=== PATIENT | male | born 1950 | race Caucasian/White ===

== ENCOUNTER 2019-05-06 19:30 | Inpatient (IN) ==
[2019-05-06] MEDS ORDERED: ELIQUIS PO ONE (19:52)
[2019-05-06] MEDS ORDERED: CARDIZEM IV ONE ×2 (19:52→20:54)
[2019-05-06] MEDS ORDERED: NITROGLYCERIN TOP ONE (19:54)
[2019-05-06 20:22] LABS: INR 1.07; PROTIME 14.5 Seconds (11.0-16.0)
[2019-05-06 20:23] LABS: PTT 34.5 Seconds (22.3-41.8)
[2019-05-06 20:27] LABS: BASO# 0.06 X1000 (0.0-0.2); BASO% 0.6 % (0.0-0.8); EOS# 0.22 X1000 (0.0-0.7); EOS% 2.2 % (0.0-10.0); HEMATOCRIT 42.6 % (42.0-52.0); HEMOGLOBIN 14.7 g/dL (14.0-18.0); IMM GRAN# 0.07 X1000 (0.0-0.04); IMM GRAN% 0.7 % (0.0-0.5); LYMPH# 1.66 X1000 (1.2-3.4); LYMPH% 16.4 % (20.5-51.1); MCH 30.6 PG (27-31); MCHC 34.5 g/dL (33-37); MCV 88.8 FL (81-99); MONO# 0.85 X1000 (0.11-0.59); MONO% 8.4 % (1.7-9.3); MPV 12.9 FL (7.4-10.4); NEUT# 7.29 X1000 (1.4-6.5); NEUT% 71.7 % (42.2-75.2); PLT 205 X1000 (130-400); WBC 10.15 X1000 (4.8-10.8)
--- NOTE | 2019-05-06 20:37 | Diag Imaging Result Doc PS360 ---
EXAM: CHEST-PORTABLE 05/06/2019 HISTORY: CP TECHNIQUE: Erect AP portable at 2022 COMMENT: There is no evidence of acute cardiac or pulmonary disease. Compared to 02/08/2018 there has been no significant change the appearance of the chest. IMPRESSION: No evidence of acute disease. Electronically signed by Shashi Heredia 05/06/2019 8:34 PM
[2019-05-06] MEDS ORDERED: HUMULIN R IV ONE (20:40)
[2019-05-06 20:41] LABS: ALBUMIN 4.5 g/dL (3.5-5.0); CALCIUM 9.3 mg/dL (8.8-10.2); CREATININE 1.7 mg/dL (0.7-1.2); POTASSIUM 4.2 mmol/L (3.5-5.1); TOTAL BILIRUBIN 0.5 mg/dL (0.20-1.00); TOTAL PROTEIN 7.2 g/dL (6.3-8.3)
[2019-05-06 21:01] LABS: BE 3.1 mmoll (-3.0-3.0); BLOOD TYPE ARTERIAL; HCO3-(ACT) 27.3 mmoll (20.0-26.0); METHB 0.7 % (0.0-1.5); O2(CT) 21.3 mL/dL (15.0-23.0); O2HB 95.1 % (95.0-99.0); PCO2(98.6) 33 mmHg (35-45); PO2(98.6) 103 mmHg (60-100); SAMPLE BLOOD; SAO2 96.9 % (95.0-100.0); THB 15.9 g/dL (11.5-17.4)
[2019-05-06 21:03] LABS: ALLEN TEST YES; MODALITY ROOM AIR
[2019-05-06] MEDS ORDERED: HUMULIN R (PARKWAY) ONE (21:09)
[2019-05-06 21:20] LABS: URINE SOURCE CLEAN CATCH
[2019-05-06 21:25] LABS: BILIRUBIN URINE NEGATIVE (NEGATIVE); BLOOD URINE NEGATIVE (NEGATIVE); COLOR YELLOW; GLUCOSE URINE >1000 mg/dL (NEGATIVE); KETONE URINE NEGATIVE (NEGATIVE); LEUKOCYTES URINE TRACE (NEGATIVE); NITRITE URINE NEGATIVE (NEGATIVE); PH URINE 5.5; PROTEIN URINE TRACE mg/dL (NEGATIVE); SP GRAVITY URINE 1.021; TURBIDITY URINE CLEAR (CLEAR); UROBILINOGEN URINE NORMAL (NORMAL)
[2019-05-06 21:27] LABS: UR EPITHELIAL CELLS <10 /HPF (<10); URINE BACTERIA NEGATIVE /HPF; URINE RBC <10 /HPF (<10); URINE WBC <10 /HPF (<10)
[2019-05-06] MEDS: CARDIZEM 100 MG/NS 100 MG/100 ML IVPB IV SCH ×2 (21:39→22:07)
[2019-05-06 21:41] LABS: UR AMPHETAMINES QUAL NONE DETECTED (NONE DETECT); UR BARBITUATES QUAL NONE DETECTED (NONE DETECT); UR BENZODIAZEPIN QUAL NONE DETECTED (NONE DETECT); UR CANNABINOIDS QUAL NONE DETECTED (NONE DETECT); UR COCAINE QUAL NONE DETECTED (NONE DETECT); UR METHADONE QUAL NONE DETECTED (NONE DETECT); UR METHAMPHETAMINE QUAL NONE DETECTED (NONE DETECT); UR OPIATES QUAL NONE DETECTED (NONE DETECT); UR OXYCODONE QUAL NONE DETECTED (NONE DETECT); UR PCP QUAL NONE DETECTED (NONE DETECT); UR PROPOXYPHENE QUAL NONE DETECTED (NONE DETECT); UR TCA QUAL NONE DETECTED (NONE DETECT)
[2019-05-06] MEDS ORDERED: CORDARONE IV ONE ×2 (22:04→22:37)
[2019-05-06 22:06] LABS: MAGNESIUM 1.3 mg/dL (1.5-2.7); PHOSPHORUS 2.7 mg/dL (2.7-4.5)
[2019-05-06] MEDS ORDERED: LANOXIN IV ONE (22:42)
--- NOTE | 2019-05-06 23:22 | PROVIDER DOCUMENTATION ---
This chart was entered by Anisa Ambrose Scribe, acting as scribe for Dhiraj Costa MD. HPI-Chest Pain - General Chief Complaint: Chest Pain Stated Complaint: CHEST PAIN Time Seen by Provider: 05/06/19 19:40 Source: patient Allergies/Adverse Reactions: Patient Allergies Allergy/AdvReac Type Severity Reaction Status Date / Time albuterol AdvReac Severe made heart Verified 05/06/19 19:39 race real fast Iodinated Contrast Media AdvReac Mild ITCHING Verified 05/06/19 19:39 isosorbide mononitrate * AdvReac Mild ITCHING Verified 05/06/19 19:39 [From Imdur] Home Medications: Home Medication List Medication Instructions Recorded Confirmed Last Taken Type Omeprazole [Prilosec] 40 mg PO BID 11/01/12 05/25/17 06/01/17 06:00 History Furosemide [Lasix] 20 mg PO DAILY 01/29/13 05/25/17 06/01/17 06:00 History Albuterol Sulfate [Ventolin Hfa] 1 puff IH 4X05/25/17 06/01/17 06/01/17 06:00 History Budesonide/Formoterol Fumarate 1 puff IH BID 05/25/17 05/25/17 06/01/17 06:00 History [Symbicort 160-4.5 Mcg Inhaler] Cholecalciferol (Vit D3) [Vitamin 5,000 unit PO DAILY 05/25/17 05/25/17 06/01/17 06:00 History D] Cyanocobalamin (Vitamin B-12) 1,000 mcg IJ DIRECTED 05/25/17 05/25/17 06/01/17 06:00 History [Cyanocobalamin Injection] Diltiazem HCl [Cartia Xt] 120 mg PO DAILY 05/25/17 05/25/17 06/01/17 06:00 History Hydralazine [Apresoline] 25 mg PO BID 05/25/17 05/25/17 06/01/17 06:00 History Hydrochlorothiazide 25 mg PO DAILY 05/25/17 05/25/17 06/01/17 06:00 History LISINOpril [Prinivil] 10 mg PO BID 05/25/17 05/25/17 05/31/17 09:30 History Metformin [Glucophage] 850 mg PO BID CC 05/25/17 05/25/17 05/31/17 09:30 History Zolpidem [Ambien] 5 mg PO QHS 05/25/17 05/25/17 06/01/17 06:00 History Methocarbamol [Robaxin-750] 750 mg PO Q6H #20 tab 02/08/18 Unknown Rx - History of Present Illness-CP Nature of Presenting Problem: pt is a 69 yowm 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 pt reports pain is improving among ed arrival. 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 pt has hx of afib, takes 5mg elaquis in am and pm, has not had pm dose. residential manager is dr. chaves, pcp dr. garcia. pt sts had ablasion and afib has been under control. pt has not had cp like this. no sob or diaphoresis. Location: reports: central Chest Pain Radiation: reports: arms (left), neck Severity in ED: mild Onset/Duration: 1 hour ago Timing: improving Context/Activities at Onset: reports: none Modifying Factors: improves with: nothing Associated Symptoms: denies: diaphoresis, shortness of breath Nitro Today/Relief: provided at home, mild relief Similar Symptoms Previously?: No Review of Systems - Adult - REVIEW OF SYSTEMS - ADULT Constitutional: reports: no symptoms reported. denies: fever, fatique, night sweats Eyes: reports: no symptoms reported Ears, Nose, Mouth & Throat: reports: no symptoms reported Cardiovascular: reports: see HPI, chest pain. denies: edema, heart murmur, poor circulation, syncope Respiratory: reports: no symptoms reported. denies: shortness of breath Gastrointestinal: reports: no symptoms reported Genitourinary: reports: no symptoms reported Musculoskeletal: reports: no symptoms reported Integumentary: reports: no symptoms reported Neurological: reports: no symptoms reported Psychiatric: reports: no symptoms reported Endocrine: reports: no symptoms reported. denies: excessive sweating Hematologic/Lymphatic: reports: no symptoms reported Allergic/Immunologic: reports: no symptoms reported All Other Systems: Reviewed and Negative Past History - Adult - PAST MEDICAL HISTORY-ADULT Review of Records: reports: Nursing Assessment Review, Medications Reviewed, Social history reviewed & non-contributory. Major Childhood Illnesses: reports: denies history Cardiovascular: reports: A-Fib, HTN Respiratory: reports: sleep apnea Gastrointestinal: reports: denies history Obstetrical/Gynecological: reports: denies history Genitourinary: reports: other Musculoskeletal: reports: denies history Neurological: reports: denies history Endocrine/Immune: reports: Diabetes Other Conditions: reports: denies history - PRIOR SURGERIES/PROCEDURES Surgical/Procedure History: reports: reviewed, not pertinent, other - IMMUNIZATION STATUS Childhood Immunizations: See Nurse Assessment Flu Vaccine: See Nurse Assessment - FAMILY HISTORY Family History: reviewed, not pertinent - SOCIAL HISTORY Smoking: non-smoker Substance Use: none/never Physical Exam-General - PHYSICAL EXAM-ADULT Initial Vital Signs Reviewed: Yes - CONSTITUTIONAL General Appearance: appears well, alert, no apparent distress, obese. negative: slow to respond, obtunded, combative - EYES Eyes: PERRL/EOMI - HEAD, EARS, NOSE, MOUTH & THROAT HENMT: normocephalic/atraumatic, moist mucous membranes, normal ENT inspection - NECK Neck: non-tender, full range of motion, supple, normal inspection - RESPIRATORY Respiratory: chest non-tender, lungs clear, normal breath sounds - CARDIOVASCULAR Cardiovascular: normal peripheral pulses, no edema, no gallop, no JVD, no murmur , tachycardia. negative: regular rate, rhythm, extra beats, friction rub, irregularly irregular - GASTROINTESTINAL (ABDOMEN) Abdominal Exam: normal bowel sounds, non tender, soft - MUSCULOSKELETAL Back Exam: normal inspection Extremity: normal range of motion, non-tender, normal inspection - SKIN Integumentary: normal color, normal turgor, warm/dry - NEUROLOGIC Neurologic: grossly normal, no motor/sensory deficits - PSYCHIATRIC Psych/Mental Status: normal mood/affect, normal thought content, normal thought process, oriented x 3 - HEART Score HEART Score: History: Highly Suspicious HEART Score: ECG: Non-Specific Repolarization Disturbance/LBBB/PM HEART Score: Age: > or = 65 Years HEART Score: Risk Factors for Atherosclerotic Disease: > or = 3 Risk Factors or History of Atherosclerotic Disease HEART Score: Troponin: 1-3x Normal Limit Total HEART Score:: 8 Progress - PLAN OF CARE/RESULTS Progress/Plan/Lab Results: Vital Signs - 8 hr 05/06/19 19:33 Temperature 97.7 F Pulse Rate 137 H Respiratory Rate 20 Blood Pressure 152/84 O2 Sat by Pulse Oximetry 94 L Laboratory Results - last 24 hr 05/06/19 05/06/19 05/06/19 19:55 19:55 19:55 WBC 10.15 RBC 4.80 Hgb 14.7 Hct 42.6 MCV 88.8 MCH 30.6 MCHC 34.5 RDW Std Deviation 13.0 Plt Count 205 MPV 12.9 H Immature Gran % (Auto) 0.7 H Neut % (Auto) 71.7 Lymph % (Auto) 16.4 L [place] % (Auto) 8.4 Eos % (Auto) 2.2 Baso % (Auto) 0.6 Immature Gran # (Auto) 0.07 H Neut # (Auto) 7.29 H Lymph # (Auto) 1.66 [place] # (Auto) 0.85 H Eos # (Auto) 0.22 Baso # (Auto) 0.06 PT INR PTT (Actin FS) Specimen Type Sample Site pH pCO2 pO2 HCO3 Base Excess Oxyhemoglobin ABG O2 Sat (Calculated) ABG O2 Saturation ABG Carboxyhemoglobin ABG Methemoglobin Valentin Test A-a O2 Difference Total Hemoglobin Lactate Blood Gas Modality FiO2 % Sodium 138 Potassium 4.2 Chloride 98 Carbon Dioxide 22 L Anion Gap 19 BUN 23 H Creatinine 1.7 H Estimated GFR/1.73 m2 40 BUN/Creatinine Ratio 14 Glucose 451 H* POC Glucose Calculated Osmolality 299 Calcium 9.3 Phosphorus Magnesium Total Bilirubin 0.50 AST 33 ALT 53 H Alkaline Phosphatase 49 Creatine Kinase Troponin T High Sens [id number]-Holjxgxctkw Pept 197 Total Protein 7.2 Albumin 4.5 Globulin 3.0 Albumin/Globulin Ratio 2.0 TSH Urine Source Urine Color Urine Turbidity Urine pH Ur Specific [place] Urine Protein Ur Glucose (Stick) Ur Ketones (Stick) Urine Blood Urine Nitrite Urine Bilirubin Urobilinogen Dipstick Urine Leukocytes Urine WBC (Auto) Urine RBC (Auto) U Epithel Cells (Auto) Urine Bacteria (Auto) Urine Opiates Screen Ur Oxycodone Screen Urine Methadone Screen U Propoxyphene Qual Ur Barbituates Screen Ur Tricyclics Screen Ur Phencyclidine Scrn Ur Amphetamines Screen U Methamphetamines Scrn U Benzodiazepines Scrn Urine Cocaine Screen U Cannabinoids Screen Acetone Level 05/06/19 05/06/19 05/06/19 19:55 19:55 19:55 WBC RBC Hgb Hct MCV MCH MCHC RDW Std Deviation Plt Count MPV Immature Gran % (Auto) Neut % (Auto) Lymph % (Auto) [place] % (Auto) Eos % (Auto) Baso % (Auto) Immature Gran # (Auto) Neut # (Auto) Lymph # (Auto) [place] # (Auto) Eos # (Auto) Baso # (Auto) PT 14.5 INR 1.07 PTT (Actin FS) 34.5 Specimen Type Sample Site pH pCO2 pO2 HCO3 Base Excess Oxyhemoglobin ABG O2 Sat (Calculated) ABG O2 Saturation ABG Carboxyhemoglobin ABG Methemoglobin Valentin Test A-a O2 Difference Total Hemoglobin Lactate Blood Gas Modality FiO2 % Sodium Potassium Chloride Carbon Dioxide Anion Gap BUN Creatinine Estimated GFR/1.73 m2 BUN/Creatinine Ratio Glucose POC Glucose Calculated Osmolality Calcium Phosphorus Magnesium Total Bilirubin AST ALT Alkaline Phosphatase Creatine Kinase 69 Troponin T High Sens 15 Klg-P-Wneklgaelrh Pept Total Protein Albumin Globulin Albumin/Globulin Ratio TSH Urine Source Urine Color Urine Turbidity Urine pH Ur Specific [place] Urine Protein Ur Glucose (Stick) Ur Ketones (Stick) Urine Blood Urine Nitrite Urine Bilirubin Urobilinogen Dipstick Urine Leukocytes Urine WBC (Auto) Urine RBC (Auto) U Epithel Cells (Auto) Urine Bacteria (Auto) Urine Opiates Screen Ur Oxycodone Screen Urine Methadone Screen U Propoxyphene Qual Ur Barbituates Screen Ur Tricyclics Screen Ur Phencyclidine Scrn Ur Amphetamines Screen U Methamphetamines Scrn U Benzodiazepines Scrn Urine Cocaine Screen U Cannabinoids Screen Acetone Level 05/06/19 05/06/19 05/06/19 19:55 19:55 19:55 WBC RBC Hgb Hct MCV MCH MCHC RDW Std Deviation Plt Count MPV Immature Gran % (Auto) Neut % (Auto) Lymph % (Auto) [place] % (Auto) Eos % (Auto) Baso % (Auto) Immature Gran # (Auto) Neut # (Auto) Lymph # (Auto) [place] # (Auto) Eos # (Auto) Baso # (Auto) PT INR PTT (Actin FS) Specimen Type Sample Site pH pCO2 pO2 HCO3 Base Excess Oxyhemoglobin ABG O2 Sat (Calculated) ABG O2 Saturation ABG Carboxyhemoglobin ABG Methemoglobin Valentin Test A-a O2 Difference Total Hemoglobin Lactate Blood Gas Modality FiO2 % Sodium Potassium Chloride Carbon Dioxide Anion Gap BUN Creatinine Estimated GFR/1.73 m2 BUN/Creatinine Ratio Glucose POC Glucose Calculated Osmolality Calcium Phosphorus 2.7 Magnesium 1.3 L Total Bilirubin AST ALT Alkaline Phosphatase Creatine Kinase Troponin T High Sens Hdu-F-Vtptuxsahtp Pept Total Protein Albumin Globulin Albumin/Globulin Ratio TSH 2.40 Urine Source Urine Color Urine Turbidity Urine pH Ur Specific [place] Urine Protein Ur Glucose (Stick) Ur Ketones (Stick) Urine Blood Urine Nitrite Urine Bilirubin Urobilinogen Dipstick Urine Leukocytes Urine WBC (Auto) Urine RBC (Auto) U Epithel Cells (Auto) Urine Bacteria (Auto) Urine Opiates Screen Ur Oxycodone Screen Urine Methadone Screen U Propoxyphene Qual Ur Barbituates Screen Ur Tricyclics Screen Ur Phencyclidine Scrn Ur Amphetamines Screen U Methamphetamines Scrn U Benzodiazepines Scrn Urine Cocaine Screen U Cannabinoids Screen Acetone Level NEGATIVE 05/06/19 05/06/19 05/06/19 20:47 21:11 21:11 WBC RBC Hgb Hct MCV MCH MCHC RDW Std Deviation Plt Count MPV Immature Gran % (Auto) Neut % (Auto) Lymph % (Auto) [place] % (Auto) Eos % (Auto) Baso % (Auto) Immature Gran # (Auto) Neut # (Auto) Lymph # (Auto) [place] # (Auto) Eos # (Auto) Baso # (Auto) PT INR PTT (Actin FS) Specimen Type ARTERIAL Sample Site L RADIAL pH 7.50 H pCO2 33 L pO2 103 H HCO3 27.3 H Base Excess 3.1 H Oxyhemoglobin 95.1 ABG O2 Sat (Calculated) 21.3 ABG O2 Saturation 96.9 ABG Carboxyhemoglobin 1.20 ABG Methemoglobin 0.7 Valentin Test YES A-a O2 Difference 5.0 Total Hemoglobin 15.9 Lactate 3.30 H Blood Gas Modality ROOM AIR FiO2 % 21.0 Sodium Potassium Chloride Carbon Dioxide Anion Gap BUN Creatinine Estimated GFR/1.73 m2 BUN/Creatinine Ratio Glucose POC Glucose Calculated Osmolality Calcium Phosphorus Magnesium Total Bilirubin AST ALT Alkaline Phosphatase Creatine Kinase Troponin T High Sens Ihm-R-Jtfeyujcvgt Pept Total Protein Albumin Globulin Albumin/Globulin Ratio TSH Urine Source CLEAN CATCH Urine Color YELLOW Urine Turbidity CLEAR Urine pH 5.5 Ur Specific [place] 1.021 Urine Protein TRACE A Ur Glucose (Stick) >1000 A Ur Ketones (Stick) NEGATIVE Urine Blood NEGATIVE Urine Nitrite NEGATIVE Urine Bilirubin NEGATIVE Urobilinogen Dipstick NORMAL Urine Leukocytes TRACE A Urine WBC (Auto) <10 Urine RBC (Auto) <10 U Epithel Cells (Auto) <10 Urine Bacteria (Auto) NEGATIVE Urine Opiates Screen NONE DETECTED Ur Oxycodone Screen NONE DETECTED Urine Methadone Screen NONE DETECTED U Propoxyphene Qual NONE DETECTED Ur Barbituates Screen NONE DETECTED Ur Tricyclics Screen NONE DETECTED Ur Phencyclidine Scrn NONE DETECTED Ur Amphetamines Screen NONE DETECTED U Methamphetamines Scrn NONE DETECTED U Benzodiazepines Scrn NONE DETECTED Urine Cocaine Screen NONE DETECTED U Cannabinoids Screen NONE DETECTED Acetone Level 05/06/19 05/06/19 22:16 22:17 WBC RBC Hgb Hct MCV MCH MCHC RDW Std Deviation Plt Count MPV Immature Gran % (Auto) Neut % (Auto) Lymph % (Auto) [place] % (Auto) Eos % (Auto) Baso % (Auto) Immature Gran # (Auto) Neut # (Auto) Lymph # (Auto) [place] # (Auto) Eos # (Auto) Baso # (Auto) PT INR PTT (Actin FS) Specimen Type Sample Site pH pCO2 pO2 HCO3 Base Excess Oxyhemoglobin ABG O2 Sat (Calculated) ABG O2 Saturation ABG Carboxyhemoglobin ABG Methemoglobin Valentin Test A-a O2 Difference Total Hemoglobin Lactate Blood Gas Modality FiO2 % Sodium Potassium Chloride Carbon Dioxide Anion Gap BUN Creatinine Estimated GFR/1.73 m2 BUN/Creatinine Ratio Glucose POC Glucose 283 H Calculated Osmolality Calcium Phosphorus Magnesium Total Bilirubin AST ALT Alkaline Phosphatase Creatine Kinase Troponin T High Sens 20 H Vsj-[id number]-Ipqgvlutrzg Pept Total Protein Albumin Globulin Albumin/Globulin Ratio TSH Urine Source Urine Color Urine Turbidity Urine pH Ur Specific [place] Urine Protein Ur Glucose (Stick) Ur Ketones (Stick) Urine Blood Urine Nitrite Urine Bilirubin Urobilinogen Dipstick Urine Leukocytes Urine WBC (Auto) Urine RBC (Auto) U Epithel Cells (Auto) Urine Bacteria (Auto) Urine Opiates Screen Ur Oxycodone Screen Urine Methadone Screen U Propoxyphene Qual Ur Barbituates Screen Ur Tricyclics Screen Ur Phencyclidine Scrn Ur Amphetamines Screen U Methamphetamines Scrn U Benzodiazepines Scrn Urine Cocaine Screen U Cannabinoids Screen Acetone Level Orders Category Date Time Status Admit - [facility] Routine AdmDCTranf 05/06/19 23:16 Active Cardiac Monitoring DIRECTED Care 05/06/19 19:54 Active FSBS/Accucheck Result Q1H Care 05/06/19 20:42 Active Oxygen Therapy- ED Nursing DIRECTED Care 05/06/19 19:54 Active Saline Loc NOW Care 05/06/19 19:54 Active CHEST-PORTABLE [RAD] Stat Exams 05/06/19 19:54 Completed ABG [RESP] Routine Lab 05/06/19 20:47 Completed ACETONE SERUM [CHEM] Stat Lab 05/06/19 19:55 Completed CBC WITH ELECTRONIC DIFF [HEME] Stat Lab 05/06/19 19:55 Completed CK PROFILE [SP CHEM] Stat Lab 05/06/19 19:55 Completed COMPREHENSIVE METABOLIC PANEL [CHEM] Stat Lab 05/06/19 19:55 Completed MAGNESIUM [CHEM] Stat Lab 05/06/19 19:55 Completed PHOSPHORUS [CHEM] Stat Lab 05/06/19 19:55 Completed PRO B-NATRIURETIC PEPTIDE Stat Lab 05/06/19 19:55 Completed PROTIME WITH INR [COAG] Stat Lab 05/06/19 19:55 Completed PTT [COAG] Stat Lab 05/06/19 19:55 Completed TROPONIN T HIGH SENSITIVITY Stat Lab 05/06/19 19:55 Completed TROPONIN T HIGH SENSITIVITY Stat Lab 05/06/19 22:17 Completed TSH Stat Lab 05/06/19 19:55 Completed UA [URINALYSIS W/POSS RFLX CULT] [URINALYSIS] Stat Lab 05/06/19 21:11 Completed URINE CULTURE [RM] Routine Lab 05/06/19 21:28 Ordered URINE DRUG SCREEN PL Stat Lab 05/06/19 21:11 Completed Amiodarone [Cordarone] Med 05/06/19 22:04 Discontinued 150 mg IV NOW ONE Amiodarone [Cordarone] Med 05/06/19 22:37 Discontinued 150 mg IV NOW ONE Apixaban [Eliquis] Med 05/06/19 19:52 Discontinued 5 mg PO NOW ONE Digoxin [Lanoxin] Med 05/06/19 22:42 Discontinued 250 microgm IV NOW ONE Diltiazem 100 mg/Ns [Cardizem 100 mg/Ns] Med 05/06/19 21:00 Active 100 mg in 100 ml IV As Directed mls/hr Diltiazem [Cardizem] Med 05/06/19 20:54 Discontinued 20 mg IV NOW ONE Diltiazem [Cardizem] Med 05/06/19 19:52 Discontinued 25 mg IV NOW ONE Insulin Human Regular ([place] [Humulin R ([place])] Med 05/06/19 21:09 Discontinued 10 units .ROUTE .STK-MED ONE Insulin Human Regular [Humulin R] Med 05/06/19 20:40 Discontinued 10 unit IV NOW ONE Nitroglycerin Med 05/06/19 19:54 Discontinued 0.5 inch TOP NOW ONE CP/SOB/Palp >45 yrs of Age Stat Oth 05/06/19 19:53 Ordered EKG [EKG] Stat Ther 05/06/19 19:53 Ordered Transfer/Admit Order [TRANSFER] Routine Transfer 05/06/19 23:17 Ordered Result Diagrams: 05/06/19 19:55 05/06/19 19:55 - REASSESSMENT Reassessment #1 Time Reassessed: 23:19 Status: improving (CP improved after converted from AFLUTTER at 138 to AFIB at 100. It required IV cardizem x 2 and cardizem drip, Amiodarone 150mg x 2 and Dig 0.25mg all IV. Also given his night time Eliquis dose and Nitropaste. For hyperglycemia, given IV insulin.) - EKG 1 Time of EKG reading by physician:: 19:46 EKG Read and Signed by:: Dhiraj Costa EKG Interpretation (*Must complete 3 of following elements*): Abnormal Rate: 138 (rt hemablock ) Rhythm: A-flutter [place]: normal QRS: LBB MS Interval: normal ST Wave: normal - XRAY 1 XRAY Study: Chest Impression: See EMR Report ( EXAM: CHEST-PORTABLE 05/06/2019 HISTORY: CP TECHNIQUE: Erect AP portable at 2022 COMMENT: There is no evidence of acute cardiac or pulmonary disease. Compared to 02/08/2018 there has been no significant change the appearance of the chest. IMPRESSION: No evidence of acute disease. Electronically signed by Shashi Heredia 05/06/2019 8:34 PM) Comparison with other Films: no changes - CONSULTS/PCP/HOSPITALIST Notification #1 *Consult/PCP/Hospitalist*: DR. VIKTOR Esposito Discussed: 22:58 Consult Disposition: other (REFUDED TO PUT ORDERS IN DUE TO NO BEDS) #2 Consult: DR. VIKTOR Esposito Discussed: 23:13 Consult Disposition: Admit (WILL ADMIT TO ICU [facility]) Departure - Departure Date of Disposition Decision: 05/06/19 Time of Disposition Decision: 23:20 DIAGNOSIS: Atrial flutter with rapid ventricular response, Chest pain due to coronary artery disease, Type 2 diabetes mellitus with hyperglycemia, without long-term current use of insulin, High serum lactic acid Disposition: ADMITTED INPATIENT 09 Certified Medical Emergency: Emergent Condition: Serious Referrals and Follow-Ups: Ronny Garcia MD [Primary Care Provider] - - Critical Care Note This patient required my direct & personal management of CC.: Yes Total Time (mins): 60 Critical Care Statement: This patient required my direct personal management to treat or rule out processes, the absence of which, could potentiallly result in sudden, clinically significant life or limb threatening deterioration. Attestation - Physician/ DARRELL Attestation Patient care was provided by Advanced Practice Provider:: No The physician spent face to face time with patient:: Yes Advanced Practice Provider documentation review:: Supervising physician onsite and consulted in the evaluation and care of this patient. The physician did have a face to face encounter with the patient. This chart was documented by the indicated scribe, (Anisa Ambrose Scribe) and accurately reflects the services I performed and decisions made by me, Dhiraj Costa MD, as attested by the provider's signature.
[2019-05-06] MEDS ORDERED: TYLENOL PO PRN (23:27)
[2019-05-06] MEDS ORDERED: ZOFRAN IV PRN (23:27)
[2019-05-06] MEDS ORDERED: NS 1,000 ML IV SCH (23:30)
--- NOTE | 2019-05-06 23:33 | ED EKG INTERP ---
EKG Interpretation - EKG Time of EKG reading by physician:: 23:32 EKG Read and Signed by:: Dhiraj Costa EKG Interpretation (*Must complete 3 of following elements*): Abnormal Rate: 98 Rhythm: AFIB [place]: normal QRS: RBB (hemiblock) ST Wave: normal Prior EKG Comparison: changes noted (rhytm change, rate controlled) Attestation - Physician/ DARRELL Attestation Patient care was provided by Advanced Practice Provider:: No The physician spent face to face time with patient:: Yes Advanced Practice Provider documentation review:: Supervising physician onsite and consulted in the evaluation and care of this patient. The physician did have a face to face encounter with the patient.
--- NOTE | 2019-05-06 23:34 | EKG Report ---
Test Performed on : 05/06/2019 7:45:09 PM Test Reason : tele changes Blood Pressure : / mmHG Vent. Rate : 138 BPM Atrial Rate : 276 BPM P-R Int : 000 ms QRS Dur : 100 ms QT Int : 312 ms P-R-T Axes : -78 -40 -63 degrees QTc Int : 472 ms Atrial flutter. with 2:1 AV conduction. Left axis deviation Incomplete right bundle branch block Left ventricular hypertrophy with repolarization abnormality Inferior infarct , age undetermined Abnormal ECG When compared with ECG of 30-JAN-2013 13:20, Atrial flutter. has replaced Sinus rhythm. Vent. rate has increased BY 89 BPM Incomplete right bundle branch block is now present Inferior infarct is now present Unconfirmed Result
[2019-05-07] MEDS ORDERED: TYLENOL PO PRN (00:44)
[2019-05-07] MEDS ORDERED: ZOFRAN IV PRN (00:46)
[2019-05-07] MEDS ORDERED: CARDIZEM 100 MG/NS 100 MG/100 ML IVPB IV SCH (01:00)
[2019-05-07] MEDS: MAGNESIUM SULFATE 2 GM/S.W.I. 2 GM/50 ML IVPB IV ONE ×2 (02:57→03:07)
[2019-05-07] MEDS ORDERED: MAGNESIUM SULFATE 2 GM/S.W.I. 2 GM/50 ML IVPB IV ONE (03:00)
--- NOTE | 2019-05-07 06:17 | HISTORY AND PHYSICAL ---
PRIMARY CARE PHYSICIAN: Dr. Garcia. CHIEF COMPLAINT: Palpitations and chest discomfort. HISTORY OF PRESENTING ILLNESS: A 69-year-old male with a history of atrial fibrillation status post catheter ablation, hypertension, and diabetes mellitus type 2, who had presented to the emergency department with 1-day history of having substernal chest pain. The patient states that he was having some palpitation symptoms this time, and he was not feeling well. The patient had presented initially to [facility] where he was found to be in atrial flutter with rapid ventricular response. He was put on IV Cardizem. Due to lack of ICU beds there, he was transferred to [facility] for further evaluation. At the time of my examination, patient denied any fever, chills, nausea, vomiting, diarrhea, hemoptysis, melena, or weight changes, but complained of chest pain. PAST MEDICAL HISTORY: Includes atrial fibrillation, hypertension, and diabetes mellitus type 2. PAST SURGICAL HISTORY: Catheter ablation and right shoulder surgery. ALLERGIES: Albuterol, iodinated contrast media, and isosorbide mononitrate. CURRENT MEDICATIONS: 1. Diltiazem 120 mg p.o. daily. 2. Lasix 20 mg p.o. daily. 3. Hydralazine 25 mg p.o. daily. 4. Hydrochlorothiazide 25 mg p.o. daily. 5. Lisinopril 10 mg p.o. daily. 6. Omeprazole 40 mg p.o. daily. 7. Ambien 10 mg p.o. at bedtime. SOCIAL HISTORY: No history of smoking, alcohol or illicit drug use. FAMILY HISTORY: No history of coronary disease. REVIEW OF SYSTEMS: Fourteen point review of systems is as in HPI. Other systems negative. PHYSICAL EXAMINATION: GENERAL: Cooperative friendly male. He is resting more comfortably now. VITAL SIGNS: Temperature 97.7 degrees, pulse 137, respirations 20, and blood pressure 152/84. HEENT: Atraumatic, normocephalic. Extraocular movements intact. PERRLA. NECK: No masses. CHEST: Clear to auscultation. CARDIOVASCULAR: Irregular. ABDOMEN: Soft. Positive bowel sounds. EXTREMITIES: No edema. NEUROLOGIC: He is awake, alert, and oriented x3. : No bladder distention. SKIN: Warm. LABORATORIES AND STUDIES: WBCs 10.15, hemoglobin 14.7, hematocrit 42.6, and platelets 205,000. Sodium 138, potassium 4.2, chloride 98, CO2 22, BUN 23, and creatinine is 1.7. Glucose is 451. Toxicology acetone is negative. Blood gas pH is 7.50, pCO2 is 33. Chest x-ray with no evidence of any acute disease. ASSESSMENT: A 69-year-old male with a history of atrial fibrillation, hypertension, and diabetes mellitus type 2, who had presented to emergency department with 1-day history of palpitation symptoms. He was initially seen at [facility] where he was found to be in atrial flutter with rapid ventricular response. He was put on IV Cardizem and transferred to [facility] ICU for further treatment. 1. Atrial flutter with rapid ventricular response. 2. Chest pain. 3. Diabetes mellitus type 2 with hyperglycemia. 4. Hypertension. PLAN: 1. We will admit patient to ICU. 2. We will continue patient on IV Cardizem. 3. 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 4. We will trend his troponins. 5. Monitor blood glucose and put patient on sliding scale insulin regimen. 6. We will monitor blood pressure. Resume antihypertensive agent. 7. The patient is on Eliquis and that will suffice for DVT prophylaxis. 8. We will continue to follow and reassess. Make further recommendation based on patient's clinical course. cc: Wang Caro MD
[2019-05-07 06:26] LABS: HEMATOCRIT 40.7 % (42.0-52.0); MCH 30.4 PG (27-31); MCHC 34.4 g/dL (33-37); MCV 88.3 FL (81-99); MPV 12.3 FL (7.4-10.4); RBC 4.61 XMIL (4.7-6.1); WBC 9.71 X1000 (4.8-10.8)
[2019-05-07 06:47] LABS: HEMOGLOBIN A1C 8.4 % (4.8-6.0)
[2019-05-07 06:55] LABS: AGAP 12; ALB/GLOB RATIO 1.7; ALBUMIN 3.8 g/dL (3.5-5.0); ALKALINE PHOSPHATASE 39 U/L (32-122); BUN 24 mg/dL (8-22); CALCIUM 8.8 mg/dL (8.8-10.2); CHLORIDE 103 mmol/L (98-107); CHOLESTEROL 107 mg/dL (0-200); COSMO 295; CREATININE 1.3 mg/dL (0.7-1.2); ESTIMATED GFR 54; GLUCOSE 272 mg/dL (70-104); GOT 20 U/L (10-34); GPT 43 U/L (10-44); HDL 26 mg/dL (35-55); LDL 37 mg/dL; POTASSIUM 3.8 mmol/L (3.5-5.1); SODIUM 141 mmol/L (136-145); TCO2 26 mmol/L (25-35); TOTAL BILIRUBIN 0.55 mg/dL (0.20-1.00); TOTAL PROTEIN 6.1 g/dL (6.3-8.3); TRIGLYCERIDES 219 mg/dL (39-160); VLDL 44 mg/dL
[2019-05-07] MEDS ORDERED: HUMALOG (PARKWAY) SUBQ SCH (07:00)
[2019-05-07] MEDS: HUMALOG SUBQ SCH ×4 (07:05→20:20)
--- NOTE | 2019-05-07 09:48 | CARDIOLOGY CONSULTATION ---
DATE: 05/07/2019 CONSULTATION REQUESTED BY: Hospitalist Service. REASON FOR CONSULTATION: Atrial fibrillation. Chest pain. HISTORY: Mr. Alston is a 69-year-old male, who presented to the hospital with complaints of sudden onset of chest pain that started about 7 o'clock yesterday at home. The patient says that he was watching TV, and he had not done anything different than usual. The discomfort was tightness, heaviness in the front of the chest and also in between the shoulder blades. This went on for awhile until he got to [facility] within 45 minutes to 1 hour, and then it gradually started to subside. He was brought to [facility] at 2 a.m. to the ICU for further care. The pain has subsided. Initially, he was found in atrial fibrillation with rapid response. He was put on IV Cardizem. A chest x-ray showed no acute disease. Laboratory work showed that his proBNP level was normal at 197 mcg/mL. Upper normal is 229. His glucose was 451. His hemoglobin A1c was 8.4%. Creatinine was 1.7 and subsequently 1.3. The patient at the time of my evaluation, which is 9 a.m. on May 07, is asymptomatic. He feels just fine. Heart rate is better controlled. PAST MEDICAL HISTORY: Positive for paroxysmal atrial fibrillation. He was cardioverted twice in 2012 and underwent pulmonary venous isolation procedure by Dr. Cam Herrera on May 2013 in [place]. He has history of hypertension. He has history of obstructive sleep apnea. He is diabetic for many years. He has hypertension and he is close to morbidly obese. SURGICAL HISTORY: Positive for back surgery; this was done many years ago. SOCIAL HISTORY: He is . 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 He has 2 grown up children. He is not a smoker nor a drinker. ALLERGIES: Negative. FAMILY HISTORY: Father had coronary heart disease. HOME MEDICATIONS: At the time of this admission include the followin. He is on albuterol and Symbicort. 2. He is on diltiazem XT 120 daily, furosemide 20 daily, hydralazine 25 twice a day, hydrochlorothiazide 25 daily, lisinopril 10 twice a day, metformin 850 twice a day, methocarbamol 750 every 6 hours. 3. Prilosec 40 twice a day. 4. Zolpidem 5 mg at bedtime. ALLERGIES: Reported to iodinated contrast, isosorbide mononitrate, albuterol. REVIEW OF SYSTEMS: He has not been very active. His CPAP machine broke down over a year ago and he has not been using it. He normally sees Dr. Augustin for that sleep apnea management. He has experienced recurrent non productive cough for the past 3 months. He has no significant chronic pains, although at times his back limits him. He also has some knee issues. PHYSICAL EXAMINATION: Vital signs: Blood pressure 139/89, pulse 83, temperature is 97.7 degrees, respirations 16. General: The patient is awake, alert, oriented, in no distress. HEENT: Unremarkable. Chest: Clear to auscultation and percussion. Heart: Sounds are irregularly irregular, distant. Abdomen: Obese, nontender. Extremities: Show good pulses. No peripheral edema. Neurologic: Nonfocal. Moves 4 extremities. IMPRESSION: 1. Patient presents with paroxysmal atrial fibrillation, rapid response. 2. Chest pain, new onset. Question of coronary heart disease. The patient had a coronary computed tomography angiography back in 2010 that was reportedly indicative of no calcium in the coronaries and no obvious obstruction. The last stress test was done in December 2012. 3. Sleep apnea syndrome. 4. Obesity, question of morbid obesity. 5. Hypertension. 6. Poorly controlled diabetes mellitus. 7. Question of SHELLEY inhibitor mediated cough. RECOMMENDATION: At this time, we will recommend a few things: 1. We will initiate sotalol 80 mg twice a day to try to help and convert him to sinus rhythm. 2. We will pursue stress testing once he is back in sinus rhythm. 3. The patient needs to go back to Dr. Augustin and re-start his sleep apnea syndrome management with a CPAP mask. 4. He needs to follow a strict diet to lose weight. 5. Because of his complaints of recurrent cough for the past 3 months or so, I would suggest to do a CT of the chest without contrast to make sure that he does not have any pulmonary nodule, and I would also suggest to switch from lisinopril to an ARB to minimize the coughing. At this time, I will also ask for a followup echocardiogram since the last one that we have on record was done in April or 2017. Further advice will be forthcoming. cc: Shay Soni MD MTDD
--- NOTE | 2019-05-07 09:53 | EKG Report ---
Test Performed on : 05/06/2019 11:30:12 PM Test Reason : CP Blood Pressure : / mmHG Vent. Rate : 098 BPM Atrial Rate : 092 BPM P-R Int : 000 ms QRS Dur : 110 ms QT Int : 366 ms P-R-T Axes : 000 -26 036 degrees QTc Int : 467 ms Atrial fibrillation. Incomplete right bundle branch block Abnormal ECG When compared with ECG of 06-MAY-2019 19:45, (Unconfirmed) Atrial fibrillation. has replaced Atrial flutter. Criteria for Inferior infarct are no longer present ST less depressed in Inferior leads ST no longer depressed in Anterolateral leads T wave inversion no longer evident in Inferior leads T wave inversion no longer evident in Lateral leads Unconfirmed Result
--- NOTE | 2019-05-07 10:16 | Diag Imaging Result Doc PS360 ---
EXAM: CT THORAX W/O CONTRAST INDICATION: chronic cough TECHNIQUE: This exam was performed using automated exposure control, adjustment of mA or kV according to patient size, and/or use of iterative reconstruction technique. COMPARISON: None. FINDINGS: There are a couple of calcified granulomata in the inferior left upper lobe. The lungs are clear, otherwise. There is no airspace consolidation identified. No suspicious lung nodules are appreciated. There is no pleural fluid collection and no pneumothorax. There are calcified subcarinal and left hilar lymph nodes indicating prior granulomatous disease. There is no evidence of significant mediastinal or hilar lymphadenopathy, otherwise. The heart is not enlarged. Limited views of the upper abdomen reveals moderate to severe hepatic steatosis. The spleen is mildly prominent measuring up to 14.9 cm in axial length. There is no evidence of acute osseous abnormality. IMPRESSION: 1.Evidence of prior granulomatous disease. No evidence of acute chest pathology by CT. 2.Moderate to advanced hepatic steatosis and mild splenomegaly noted incidentally. Electronically signed by Thomas Ambrose 05/07/2019 10:14 AM
[2019-05-07] MEDS: COZAAR PO SCH ×2 (12:20→20:17)
[2019-05-07] MEDS: BETAPACE PO SCH ×2 (12:20→20:17)
[2019-05-07] MEDS ORDERED: AMBIEN PO PRN (12:23)
--- NOTE | 2019-05-07 13:34 | PROGRESS NOTE ---
DATE: 05/07/2019 SUBJECTIVE: Patient reports feeling fine. No chest pain. No palpitations. No chest pressure. OBJECTIVE: Vital Signs: Temperature has not been checked. Heart rate 95, respiratory 19, blood pressure 122/93, O2 saturation 96% on room air. General Examination: This is a 69-year-old male, lying in bed in no acute distress. Cardiovascular exam: Irregularly irregular heart rhythm. No murmurs, gallops, or rubs noted. Respiratory exam: Clear bilaterally to auscultation. No work of breathing or using accessory muscles. Abdomen: Soft. Nontender to palpation. Bowel sounds present. No organomegaly. Extremities: No clubbing, cyanosis, or edema. Peripheral pulses present in both legs. Neurological exam: Patient is alert and oriented x3. Moves 4 extremities. LABORATORY DATA: CBC is okay. BMP shows blood sugar 272 with A1c of 8.4. Troponin has been mildly elevated in the range of 20 and 27 with normal cholesterol and triglycerides 219. ASSESSMENT: 1. Atrial fibrillation/atrial flutter with rapid ventricular response. Patient has been evaluated by Cardiology. Initially, this patient was on Cardizem drip. That medication has been stopped, and they placed him on sotalol 80 mg oral twice daily. We will continue following recommendations from then. Apparently they are also planning to do ischemia workup once this patient's heart rhythm is back to normal. We will continue to monitor this patient closely. 2. Diabetes mellitus type 2. We will continue with sliding scale insulin, Accu-Chek before meals and also at bedtime. We will restart his basal insulin. Blood sugar has been very high in the range of 400 yesterday and 270s today. We will continue to monitor. 3. Hypertension. Blood pressure is under control. We will continue with the same medications. cc: Benjamin Scott MD
--- NOTE | 2019-05-07 18:12 | ECHO REPORT ---
ORDER DATE: 05/07/2019 INTERPRETING PHYSICIAN: Dr. Gautam Barragan. ECHOCARDIOGRAPHIC MEASUREMENTS: 1. Interventricular septum: 1.4 cm. 2. Left ventricular posterior wall: 1.4 cm. 3. Diastolic diameter: 4.1 cm. 4. Left atrium: 4.9 cm. 5. Aorta: 3.6 cm. SUMMARY OF THE 2-DIMENSIONAL IMAGIN. Aortic valve leaflets were sclerosed, trileaflet, opening normally. 2. Pulmonic valve was normal. 3. Mitral valve was normal. 4. Tricuspid valve was normal. 5. There is mild mitral regurgitation. 6. There is grade 1-2 diastolic dysfunction. 7. There is no aortic stenosis. 8. There is aortic sclerosis associated with mild eccentric aortic regurgitation. 9. Mild tricuspid regurgitation. 10. Peak velocity across the tricuspid valve was 2.1 meters per second. 11. Normal left ventricular cavity size. 12. Estimated ejection fraction of 60%. 13. Endocardium not well visualized in all views. 14. Anterior echo-free space suggestive of pericardial fat pad noted. 15. There is no pericardial effusion or obvious intracardiac mass or thrombus seen. cc: MD Ronny Garcia MD [facility]
[2019-05-07] MEDS: SYMBICORT 160/4.5 MICROGM INHALER INH SCH (19:16)
[2019-05-07] MEDS: ELIQUIS PO SCH (20:17)
[2019-05-07] MEDS: PRILOSEC PO SCH (20:20)
[2019-05-07] MEDS ORDERED: APRESOLINE PO SCH (21:00)
[2019-05-08 06:17] LABS: BASO# 0.08 X1000 (0.0-0.2); BASO% 0.8 % (0.0-0.8); HEMATOCRIT 43.5 % (42.0-52.0); HEMOGLOBIN 14.7 g/dL (14.0-18.0); IMM GRAN# 0.06 X1000 (0.0-0.04); IMM GRAN% 0.6 % (0.0-0.5); LYMPH# 2.14 X1000 (1.2-3.4); LYMPH% 21.6 % (20.5-51.1); MCH 30.3 PG (27-31); MCHC 33.8 g/dL (33-37); MCV 89.7 FL (81-99); MONO# 0.81 X1000 (0.11-0.59); MONO% 8.2 % (1.7-9.3); MPV 12.5 FL (7.4-10.4); NEUT# 6.41 X1000 (1.4-6.5); NEUT% 64.8 % (42.2-75.2); PLT 227 X1000 (130-400); RBC 4.85 XMIL (4.7-6.1); RDW 13.3 % (11.5-14.5)
[2019-05-08] MEDS: HUMALOG SUBQ SCH ×4 (06:39→22:00)
--- NOTE | 2019-05-08 07:39 | EKG Report ---
Test Performed on : 05/08/2019 07:19:10 AM Test Reason : ATRIAL FIBRILLATION Blood Pressure : / mmHG Vent. Rate : 093 BPM Atrial Rate : 096 BPM P-R Int : 000 ms QRS Dur : 110 ms QT Int : 392 ms P-R-T Axes : 000 -30 011 degrees QTc Int : 487 ms Atrial fibrillation. Left axis deviation Incomplete right bundle branch block Prolonged QT Abnormal ECG When compared with ECG of 06-MAY-2019 23:30, (Unconfirmed) No significant change was found Confirmed by Alyssa Stahl MD ([id number]) on 05/09/2019 1:00:21 PM
--- NOTE | 2019-05-08 07:44 | PROGRESS NOTE ---
DATE: 05/08/2019 SUBJECTIVE: The patient reports feeling fine. No chest pain. No palpitations. No chest pressure. OBJECTIVE: Vital Signs: Temperature has not been checked recently. Heart rate 77, respiratory rate 15 and blood pressure 109/60. O2 saturation 96% on 2 L nasal cannula. General: This is a 69-year-old male lying in bed in no acute distress. Cardiovascular: Irregularly irregular heart rhythm. No murmurs, gallops, or rubs. Regular rate and rhythm. Respiratory: Clear bilaterally to auscultation. No work of breathing or using accessory muscles. Abdomen: Soft. Nontender to palpation. Bowel sounds present. No organomegaly. Extremities: No clubbing, cyanosis, or edema. Peripheral pulses present in both legs. Neurologic: Patient alert and oriented x3. Moves all 4 extremities. LABORATORY DATA: none ASSESSMENT AND PLAN: 1. Atrial fibrillation and atrial flutter with rapid ventricular response. Patient has been started on sotalol 80 mg p.o. b.i.d. yesterday, and since then heart rate has been well controlled. He has been on that medication for the last 24 hours so that condition is stable. We will see if Cardiology plans to do ischemia workup inpatient versus outpatient. From my standpoint, I am going to move this patient out of the intensive care unit today. 2. Diabetes mellitus type 2. We will continue Accu-Chek before meals and also at bedtime, and sliding scale insulin as well. 3. Hypertension. Blood pressure is under control. We will continue with same management. 4. Disposition. We will move this patient out to the intensive care unit today. cc: Benjamin Scott MD MTDD
[2019-05-08] MEDS: ULORIC PO SCH (08:05)
[2019-05-08] MEDS: COZAAR PO SCH ×2 (08:05→20:36)
[2019-05-08] MEDS: VITAMIN D PO SCH (08:05)
[2019-05-08] MEDS: LASIX PO SCH (08:06)
[2019-05-08] MEDS: BETAPACE PO SCH ×2 (08:06→20:36)
[2019-05-08] MEDS: PRILOSEC PO SCH ×2 (08:07→22:02)
[2019-05-08] MEDS: ELIQUIS PO SCH ×2 (08:07→20:35)
[2019-05-08] MEDS: SYMBICORT 160/4.5 MICROGM INHALER INH SCH ×2 (08:18→21:15)
--- NOTE | 2019-05-08 08:26 | CARDIOLOGY PROGRESS NOTE ---
DATE: 05/08/2019 CHIEF COMPLAINT: Irregular heartbeat, dyspnea. SUBJECTIVE: Mr. Alston is feeling better today. He is not having any significant discomfort in the chest or dyspnea. His heart rate is better controlled. We have initiated new medications including sotalol and losartan. He also received some magnesium early in the morning hours of 05/07. OBJECTIVE: Vital signs: His blood pressure today is 115/73, temperature is 97.7. Respirations 12, pulse is 73. General: He is awake, alert, in no distress. HEENT: Normal. Chest: Clear to auscultation and percussion. Heart: Sounds are irregularly irregular, distant. Abdomen: Obese. Extremities: Showed no edema. Neurologic exam: Follows commands, moves all 4 extremities. BLOOD WORK: From the , his white count is normal. Hemoglobin is normal. From yesterday, his LDL cholesterol is 37, HDL is 26, total cholesterol 107, that is pretty good. Hemoglobin A1c is 8.4%, which is not great. ProBNP was normal on admission. Magnesium was low on admission. IMPRESSION: 1. Patient presented with paroxysmal atrial fibrillation. He has had prior pulmonary venous isolation procedure. 2. Chest pain atypical. His cardiac enzymes thus far have been noted 3 times and they are in the vigil zone or nonspecific range. 3. Diabetes mellitus type 2 suboptimally controlled. 4. Sleep apnea syndrome untreated. 5. Obesity. 6. Hypertension. RECOMMENDATIONS: At this time, we have replaced lisinopril with losartan because of the persistent cough. I do not hear him coughing today. His EKG this morning shows atrial fibrillation with a rate of 93 per minute with a QTc of 487. I will go ahead and proceed with cardioversion in the morning. I just wanted him to have a few doses of sotalol to derive the maximum benefit from that drug and help him maintain sinus rhythm. We will arrange this cardioversion procedure for tomorrow. We will NOT need to do a FABIENNE because he has been taking Eliquis without interruption for the past year or two. After the cardioversion, he may be discharged. We will arrange for outpatient stress testing and also he must followed by the [facility] for reassessment of his sleep apnea. cc: Shay Soni MD [facility]
[2019-05-08] MEDS ORDERED: HYDROCHLOROTHIAZIDE PO SCH (09:00)
[2019-05-08 09:07] LABS: ALBUMIN 3.8 g/dL (3.5-5.0); CALCIUM 8.8 mg/dL (8.8-10.2); CREATININE 1.3 mg/dL (0.7-1.2); PHOSPHORUS 3.5 mg/dL (2.7-4.5)
[2019-05-09 03:57] VITALS: BP 133/82
[2019-05-09] MEDS: COZAAR PO SCH ×2 (05:37→09:32)
[2019-05-09] MEDS: BETAPACE PO SCH ×2 (05:37→09:33)
[2019-05-09] MEDS: ULORIC PO SCH ×2 (05:37→09:34)
[2019-05-09] MEDS: LASIX PO SCH ×2 (05:37→09:33)
[2019-05-09] MEDS: PRILOSEC PO SCH ×2 (05:38→09:33)
[2019-05-09] MEDS: VITAMIN D PO SCH ×2 (05:38→09:34)
[2019-05-09] MEDS: ELIQUIS PO SCH ×2 (05:38→09:33)
[2019-05-09 06:12] LABS: BASO# 0.07 X1000 (0.0-0.2); BASO% 0.7 % (0.0-0.8); EOS# 0.32 X1000 (0.0-0.7); EOS% 3.1 % (0.0-10.0); HEMATOCRIT 44.1 % (42.0-52.0); IMM GRAN# 0.05 X1000 (0.0-0.04); IMM GRAN% 0.5 % (0.0-0.5); LYMPH# 1.84 X1000 (1.2-3.4); LYMPH% 17.6 % (20.5-51.1); MCH 30.1 PG (27-31); MCV 88.6 FL (81-99); MONO# 0.75 X1000 (0.11-0.59); MONO% 7.2 % (1.7-9.3); MPV 12.3 FL (7.4-10.4); NEUT# 7.41 X1000 (1.4-6.5); NEUT% 70.9 % (42.2-75.2); PLT 203 X1000 (130-400); RBC 4.98 XMIL (4.7-6.1); RDW 13.2 % (11.5-14.5); WBC 10.44 X1000 (4.8-10.8)
[2019-05-09 06:40] LABS: ALBUMIN 3.7 g/dL (3.5-5.0); CALCIUM 8.8 mg/dL (8.8-10.2); CREATININE 1.5 mg/dL (0.7-1.2); PHOSPHORUS 3.5 mg/dL (2.7-4.5); POTASSIUM 4.5 mmol/L (3.5-5.1)
--- NOTE | 2019-05-09 06:54 | EKG Report ---
Test Performed on : 05/09/2019 06:26:54 AM Test Reason : ATRIAL FIBRILLATION Blood Pressure : / mmHG Vent. Rate : 088 BPM Atrial Rate : 097 BPM P-R Int : 000 ms QRS Dur : 108 ms QT Int : 390 ms P-R-T Axes : 000 -11 014 degrees QTc Int : 471 ms Atrial fibrillation. Abnormal ECG When compared with ECG of 08-MAY-2019 07:19, (Unconfirmed) No significant change was found Confirmed by Alyssa Stahl MD ([id number]) on 05/09/2019 1:01:07 PM
[2019-05-09] MEDS: HUMALOG SUBQ SCH ×2 (07:16→11:00)
[2019-05-09] MEDS: SYMBICORT 160/4.5 MICROGM INHALER INH SCH (08:38)
[2019-05-09] MEDS ORDERED: DIPRIVAN 1% ONE (09:58)
[2019-05-09] MEDS ORDERED: NS 1,000 ML ONE (10:55)
[2019-05-09] MEDS ORDERED: ANESTHESIA PB SET 88 IN 5742 ONE (10:55)
--- NOTE | 2019-05-09 12:12 | CARDIAC CATH REPORT ---
PROCEDURE NAME: - PROCEDURE: Cardioversion of atrial fibrillation. SUMMARY: After intravenous sedation with propofol per Anesthesiology, synchronous direct- current cardioversion with 200 joules biphasic was performed, converting atrial fibrillation to sinus rhythm. There were no apparent complications. CONCLUSIONS: Successful cardioversion of atrial fibrillation to sinus rhythm. cc: Carlos Vega MD
--- NOTE | 2019-05-09 12:48 | EKG Report ---
Test Performed on : 05/09/2019 12:29:36 PM Test Reason : post cardioversion Blood Pressure : / mmHG Vent. Rate : 064 BPM Atrial Rate : 064 BPM P-R Int : 166 ms QRS Dur : 102 ms QT Int : 442 ms P-R-T Axes : 044 -25 006 degrees QTc Int : 455 ms Normal sinus rhythm. Normal ECG When compared with ECG of 09-MAY-2019 06:26, (Unconfirmed) Sinus rhythm. has replaced Atrial fibrillation. Confirmed by Alyssa Stahl MD ([id number]) on 05/09/2019 1:02:04 PM
--- NOTE | 2019-05-10 08:33 | DISCHARGE SUMMARY ---
ADMISSION DATE: 05/06/2019 DISCHARGE DATE: 05/09/2019 DISCHARGE DISPOSITION: Home. DISCHARGE CONDITION: Hemodynamically stable. His heart rate is in normal sinus rhythm. He denies any chest pain, shortness of breath, or palpitations. DISCHARGE DIAGNOSES: 1. Atrial fibrillation and atrial flutter with rapid ventricular response. 2. Dizziness and palpitations due to atrial arrhythmia. 3. Uncontrolled Vpm-hqrlyvp-asoydcspt diabetes mellitus with hyperglycemia. 4. Lisinopril-induced cough. 5. Essential hypertension. 6. Atypical chest discomfort. OTHER DIAGNOSES: 1. History of atrial fibrillation, requiring ablation around 2013. 2. Essential hypertension. 3. [id number]-mlaxrbjvt diabetes mellitus. 4. Chronic kidney disease stage 3. DISCHARGE MEDICATIONS: 1. Zolpidem 5 mg at nighttime as needed. 2. Hydralazine 25 mg b.i.d. 3. Vitamin B12 with 1000 mcg injectable as needed. 4. Apixaban 5 mg b.i.d. 5. Febuxostat 80 mg daily. 6. Metformin 850 mg b.i.d. 7. Hydrochlorothiazide 25 mg daily. 8. Furosemide 20 mg daily. 9. Omeprazole 40 mg b.i.d. 10. Symbicort 1 puff inhaled b.i.d. 11. Albuterol inhaler 1 puff inhaled 4 times a day as needed. 12. Vitamin D3 with 5000 units daily. 13. Sotalol 80 mg b.i.d., 60 tablets have been prescribed. 14. Losartan 50 mg daily, 30 tablets have been prescribed. VITALS: At the time of discharge, temperature was 97.5 degrees, his pulse on bedside monitor was 72 per minute, normal sinus rhythm, blood pressure was 133/82, he was saturating 100% on room air. PHYSICAL EXAMINATION: Not in acute distress. Oral cavity is moist. Air entry is bilaterally equal. No wheeze, rhonchi, or crackles. S1, S2 normal. No murmur, rub, or gallop. Abdomen is soft, nontender. No lower extremity edema. He is alert and oriented x3. LABS: At the time of admission and discharge, hemoglobin 15, platelet count 203,000. BUN 30, creatinine 1.5, blood glucose 217. His troponin was showing flat trend of 15 to 20. Urinalysis was remarkable for glucosuria. Urine toxicology was negative. Urine culture did not have any growth. IMAGING DURING HOSPITAL ADMISSION: 1. Echocardiogram on May 07 had grade 1-2 diastolic dysfunction, aortic sclerosis associated with mild eccentric aortic regurgitation, ejection fraction of 60%, no pericardial effusion or obvious intracardiac mass. 2. Chest CT on May 07 performed for chronic cough had evidence of prior granulomatous disease. No evidence of acute chest pathology by CT, moderate to advanced hepatic steatosis, and mild splenomegaly. 3. Electrocardiogram on 05/06/2019 had atrial fibrillation with incomplete right bundle branch block. PROCEDURES DURING HOSPITAL ADMISSION: On 05/09/2019, the patient underwent cardioversion of atrial fibrillation with 200 joules of biphasics to normal sinus rhythm. HOSPITAL COURSE SUMMARY: Mr. Alston is 69-year-old, man with a past medical history of atrial fibrillation, status post catheter ablation, essential hypertension, [id number] diabetes mellitus, who came in with chief complaints of substernal chest discomfort, palpitations, and dizziness. When he presented to [facility], he was found to be in atrial flutter with rapid ventricular response. He was started on intravenous Cardizem and was transferred to [facility] for further evaluation. The cardiology team was involved in his care and he was started on oral sotalol, which did not convert his rhythm. Noticeably, patient was taking Eliquis at home as well. The next day, the patient underwent a successful cardioversion to normal sinus rhythm. His diltiazem was changed to sotalol. He will be discharged on sotalol and Eliquis for atrial fibrillation. The patient was also complaining of chronic cough and he was noted to be on lisinopril. Chest CT had old granulomatous disease without any acute pathology. It was decided to change his lisinopril to losartan. The patient was also provided with a losartan prescription. Twenty-five minutes were spent discharging the patient. Plan of care was extensively discussed with the patient. He was also advised to have a discussion with the regular doctor about up-titrating his diabetes medication. All of his questions were answered. Time spent: 25 minutes cc: MD BRENDA Corley
== END 2019-05-09 16:00 | disposition home or self-care (01) | DRG 310 ==
LOC: P.ED 19:30 → SUATTDRO 23:55 → ICU 23:55 → 2N 05-08 19:59
PROVIDERS: ATTEND Internal Medicine